=== PATIENT | male | born 1940 ===

== ENCOUNTER 2018-02-10 10:17 | Day surgery (SDC) | payer MEDICARE, BC ==
[2018-02-10] MEDS ORDERED: ASPIRIN E.C. 8181 MG PO (10:29)
[2018-02-10] MEDS ORDERED: ELIQUIS 5MG PO (10:29)
[2018-02-10] MEDS ORDERED: DIPROLENE AF GEL15GM TP (10:30)
[2018-02-10] MEDS ORDERED: PRILOSEC 20MG20 MG PO (10:32)
[2018-02-10] MEDS ORDERED: ANUSOL-HC2.5% RC (10:32)
[2018-02-10] MEDS ORDERED: PRAVACHOL 40MG40 MG PO (10:35)
[2018-02-10] MEDS ORDERED: ALTACE 2.5MG T2.5 MG PO (10:35)
[2018-02-10] MEDS ORDERED: FLOMAX 0.40.4 MG/CAP PO (10:36)
[2018-02-10] MEDS ORDERED: ULTRAM 50MG TAB50 MG PO (10:36)
[2018-02-10] MEDS ORDERED: ALEVE 220MG220 MG PO (10:37)
[2018-02-10 11:04] LABS: HEMOGLOBIN 12.9 g/dl (13.5-18.0); MEAN CELL VOLUME 93 fl (80.0-100.0); MEAN CORPUSCULAR HEMOGLOBIN 31 pg (27.0-31.0); MEAN CORPUSCULAR HGB CONC 33 g/dl (33.0-37.0); MEAN PLATELET VOLUME 10.5 fl (7.4-10.4); PLATELET COUNT 147 K/mm3 (130-400); RED BLOOD COUNT 4.18 M/mm3 (4.20-5.60)
[2018-02-10 11:11] LABS: INR 1.9 (0.8-3.0); PROTHROMBIN TIME 21.9 SECONDS (9.7-12.8)
[2018-02-10 11:14] LABS: CREATININE, serum 0.84 mg/dL (0.66-1.25); POTASSIUM 3.9 mmol/L (3.4-5.0)
[2018-02-10 11:39] VITALS: BP 123/80; PULSE 66; TEMP 98
[2018-02-10] MEDS ORDERED: PACERONE400 MG PO (11:49)
[2018-02-10 11:54] VITALS: BP 119/72; PULSE 62; TEMP 98
[2018-02-10 12:09] VITALS: BP 120/70; PULSE 58; TEMP 98
[2018-02-10 12:24] VITALS: BP 125/73; PULSE 64; TEMP 98
[2018-02-10 12:59] VITALS: BP 122/75; PULSE 61; TEMP 98
== END 2018-02-10 13:28 | disposition home or self-care (01) ==
LOC: COL.CAR 10:17
PROVIDERS: Internal Medicine Cardiovascular Disease
DX: I48.91 Unspecified atrial fibrillation (principal); I25.10 Atherosclerotic heart disease of native coronary artery without angina pectoris; K25.7 Chronic gastric ulcer without hemorrhage or perforation; I10 Essential (primary) hypertension; G51.0 Bell's palsy; D69.6 Thrombocytopenia, unspecified; E78.2 Mixed hyperlipidemia; K21.9 Gastro-esophageal reflux disease without esophagitis; N05.9 Unspecified nephritic syndrome with unspecified morphologic changes; Z79.01 Long term (current) use of anticoagulants; Z96.652 Presence of left artificial knee joint; Z85.46 Personal history of malignant neoplasm of prostate; Z85.828 Personal history of other malignant neoplasm of skin; Z79.82 Long term (current) use of aspirin; Z87.891 Personal history of nicotine dependence; Z80.0 Family history of malignant neoplasm of digestive organs; Z82.49 Family history of ischemic heart disease and other diseases of the circulatory system
CPT/HCPCS: G9654; J0282; J2704